=== PATIENT | male | born 1955 | race Caucasian/White ===

== ENCOUNTER 2017-01-05 15:50 | Inpatient (IN) | payer OTHER ==
[~2017-01-05] VITALS: Ht 180.3 cm; Wt 129.0 kg
[~2017-01-05 15:50] MED LIST: ACET-1256 PO; CALC500C3 PO; CIPR-255 PO; CPR500 PO; LCTX PO; MCRK20 PO
[2017-01-05] MEDS ORDERED: ONDANSETRON INJ 2 MG/ML 2 ML VIAL IV STA (16:11)
[2017-01-05] MEDS ORDERED: SODIUM CHLORIDE 0.9% 1000ML 1,000 ML IV STA ×2 (16:11→18:16)
--- NOTE | 2017-01-05 16:14 | EMERGENCY ROOM VISIT NOTE ---
History Report prepared by Eyad: Della Rendon Under the Supervision of: Dr. Sd Bateman D.O. First contact with patient: 16:06 Chief Complaint: ABDOMINAL PAIN Stated Complaint: ABDOMINAL PAIN Nursing Triage Summary: pt reports mid abd pain started wednesday. no nausea no vomiting . today noticed heart palpatations History of Present Illness The patient is a 61 year old male who presents to the Emergency Room with complaints of worsening abdominal pain beginning 2 days ago. The patient reports that the pain has been radiating, and that his pain level ranges from a 4 to an 8. He also states that he has been unable to notice a pattern with what exacerbates or alleviates his pain. The patient reports having diarrhea, but denies nausea and vomiting. He also denies black and bloody stool. He states that he had bariatric surgery about 12 years ago that went poorly. He also states that his abdominal wall herniated and trapped a section of his intestines. The patient reports that last year he had a cholecystectomy, which tore the intestinal wall. He reports having another hernia after this. He states that he is on lisinopril and aspirin. The patient states that he smokes less than a pack of cigarettes per day, and that he occasionally drinks. Source of History: patient Onset: 2 days ago Position: abdomen Timing: worsening Associated Symptoms: + diarrhea, No nausea, No vomiting Review of Systems See HPI for pertinent positives & negatives. A total of 10 systems reviewed and were otherwise negative. Past Medical & Surgical Medical Problems: (1) History of gastroesophageal reflux (GERD) Surgical Problems: (1) History of bariatric surgery (2) History of umbilical hernia repair Family History No pertinent family history stated. Social History Smoking Status: Current Every Day Smoker Alcohol Use: occasionally Marital Status: Housing Status: lives with significant other Occupation Status: employed Current/Historical Medications Scheduled Aspirin (Aspirin), 325 MG PO QAM Lisinopril & Hydrochlorothiazi (Zestoretic 20-12.5 mg), 1 TAB PO DAILY Allergies Coded Allergies: No Known Allergies (Verified , 01/05/17) Physical Exam Vital Signs Date Time Temp Pulse Resp B/P (MAP) Pulse Ox O2 Delivery O2 Flow Rate FiO2 01/05/17 20:26 89 01/05/17 19:53 99 18 148/90 97 Room Air 01/05/17 18:36 98 18 138/85 97 Room Air 01/05/17 16:17 95 01/05/17 15:56 36.8 88 18 166/98 96 Room Air Physical Exam GENERAL: Patient is awake, alert, and in no acute distress. Patient is resting comfortably and showing no signs of anxiety EYES: The conjunctivae are clear. The pupils are round and reactive. EARS, NOSE, MOUTH AND THROAT: The nose is without any evidence of any deformity. Mucous membranes are moist tongue is midline NECK: The neck is nontender and supple. RESPIRATORY: Normal respiratory effort is noted there is no evidence of wheezing rhonchi or rales CARDIOVASCULAR: Regular rate and rhythm noted there no murmurs rubs or gallops normal S1 normal S2 GASTROINTESTINAL: Moderately distended. Periumbilical tenderness to palpation with a ventral hernia noted. Due to patient's abdominal girth, it is difficult to tell if this is an incarcerated hernia. MUSCULOSKELETAL/EXTREMITIES: There is no evidence of gross deformity full range of motion is noted in the hips and shoulders SKIN: There is no obvious evidence of any rash. There are no petechiae, pallor or cyanosis noted. NEUROLOGIC: Patient is awake alert and oriented x3 Medical Decision & Procedures ER Provider Diagnostic Interpretation: Radiology results as stated below per my review and radiologist interpretation: CHEST ONE VIEW PORTABLE CLINICAL HISTORY: Pain, radiating to the abdomen. COMPARISON STUDY: 04/11/2015 FINDINGS: The heart is mildly enlarged. There is mild aortic tortuosity. There is no failure. There is no focal pulmonary consolidation. There is minor basilar atelectasis. No free intraperitoneal air is visualized.[ IMPRESSION: No active disease in the chest. Electronically signed by: Greg Garza M.D. 01/05/2017 4:31 PM Dictated Date/Time: 01/05/2017 4:[address] SCAN OF THE ABDOMEN AND PELVIS WITHOUT CONTRAST CLINICAL HISTORY: upper abd pain COMPARISON STUDY: 04/10/2015 TECHNIQUE: CT scan of the abdomen and pelvis was performed from the lung bases to the proximal femurs. Images are reviewed in the axial, sagittal, and coronal planes. IV contrast was not administered for this examination. A dose lowering technique was utilized adhering to the principles of ALARA. CT DOSE: 1353.86 mGycm FINDINGS: Lower chest: There are dependent bibasal atelectatic changes Liver: The unenhanced liver is normal in size, contour, and attenuation. There is no intrahepatic biliary ductal dilatation. Gallbladder: Surgically absent Spleen: Normal in size and attenuation. Pancreas: Unremarkable. Adrenal glands: Unremarkable. Kidneys: There are 2 lower pole left renal calculi the largest of which measures 6 mm. There is no hydronephrosis. There is minor bilateral perinephric stranding. No ureteral calculi are visualized. No bladder calculi are delineated. Bowel: There are postsurgical changes of a presumed gastric bypass. There is a ventral hernia containing several small bowel loops. There is dilatation of the afferent loop. There is mild dilatation of the afferent loop and a partial obstruction at the level the ventral hernia must be considered. There is no evidence of acute appendicitis. There is no evidence of acute diverticulitis. Peritoneum: There is no intraperitoneal free air or abdominal ascites. Vasculature: The abdominal aorta is normal in course and caliber. Adenopathy: Borderline enlarged retroperitoneal and iliac lymph nodes remain similar to the preceding study. Pelvic viscera: The bladder, and pelvic viscera are unremarkable. Skeletal structures: No destructive osseous lesions are seen. IMPRESSION: 1. Postsurgical changes of a cholecystectomy, and gastric bypass with Trish-en-Y anastomosis 2. Dilatation of the afferent and proximal efferent loops. 3. The findings are consistent with a small bowel obstruction, likely at the site of a bowel containing ventral hernia 4. Left-sided nephrolithiasis. No ureteral calculi identified Electronically signed by: Greg Garza M.D. 01/05/2017 6:05 PM Dictated Date/Time: 01/05/2017 5:55 PM Laboratory Results 01/05/17 16:15 Red Blood Count 6.03, Mean Corpuscular Volume 87.7, Mean Corpuscular Hemoglobin 30.8, Mean Corpuscular Hemoglobin Concent 35.2, Mean Platelet Volume 9.9, Neutrophils (%) (Auto) 81.5, Lymphocytes (%) (Auto) 11.6, Monocytes (%) (Auto) 4.3, Eosinophils (%) (Auto) 2.0, Basophils (%) (Auto) 0.3, Neutrophils # (Auto) 13.76, Lymphocytes # (Auto) 1.96, Monocytes # (Auto) 0.72, Eosinophils # (Auto) 0.33, Basophils # (Auto) 0.05 01/05/17 16:15 Test 01/05/17 16:15 01/05/17 16:22 01/05/17 19:52 White Blood Count 16.87 K/uL (4.8-10.8) Red Blood Count 6.03 M/uL (4.7-6.1) Hemoglobin 18.6 g/dL (14.0-18.0) Hematocrit 52.9 % (42-52) Mean Corpuscular Volume 87.7 fL (80-100) Mean Corpuscular Hemoglobin 30.8 pg (25-34) Mean Corpuscular Hemoglobin Concent 35.2 g/dl (32-36) Platelet Count 336 K/uL (130-400) Mean Platelet Volume 9.9 fL (7.4-10.4) Neutrophils (%) (Auto) 81.5 % Lymphocytes (%) (Auto) 11.6 % Monocytes (%) (Auto) 4.3 % Eosinophils (%) (Auto) 2.0 % Basophils (%) (Auto) 0.3 % Neutrophils # (Auto) 13.76 K/uL (1.4-6.5) Lymphocytes # (Auto) 1.96 K/uL (1.2-3.4) Monocytes # (Auto) 0.72 K/uL (0.11-0.59) Eosinophils # (Auto) 0.33 K/uL (0-0.5) Basophils # (Auto) 0.05 K/uL (0-0.2) RDW Standard Deviation 44.8 fL (36.4-46.3) RDW Coefficient of Variation 13.9 % (11.5-14.5) Immature Granulocyte % (Auto) 0.3 % Immature Granulocyte # (Auto) 0.05 K/uL (0.00-0.02) Prothrombin Time 10.9 SECONDS (9.0-12.0) Prothromb Time International Ratio 1.0 (0.9-1.1) Activated Partial Thromboplast Time 28.5 SECONDS (21.0-31.0) Partial Thromboplastin Ratio 1.1 Anion Gap 4.0 mmol/L (3-11) Est Creatinine Clear Calc Drug Dose 110.8 ml/min Estimated GFR () 97.9 Estimated GFR (Non- 84.5 BUN/Creatinine Ratio 10.4 (10-20) Calcium Level 9.0 mg/dl (8.5-10.1) Magnesium Level 2.3 mg/dl (1.8-2.4) Total Bilirubin 0.6 mg/dl (0.2-1) Direct Bilirubin 0.2 mg/dl (0-0.2) Aspartate Amino Transf (AST/SGOT) 24 U/L (15-37) Alanine Aminotransferase (ALT/SGPT) 30 U/L (12-78) Alkaline Phosphatase 89 U/L (45-117) Total Creatine Kinase 237 U/L (39-308) Creatine Kinase MB 2.8 ng/ml (0.5-3.6) Creatine Kinase MB Ratio 1.2 (0-3.0) Troponin I < 0.015 ng/ml (0-0.045) Total Protein 7.6 gm/dl (6.4-8.2) Albumin 3.7 gm/dl (3.4-5.0) Amylase Level 49 U/L (25-115) Lipase 108 U/L (73-393) Bedside Lactic Acid Venous 1.74 mmol/L (0.90-1.70) Urine Color YELLOW Urine Appearance CLEAR (CLEAR) Urine pH 7.0 (4.5-7.5) Urine Specific [place] 1.012 (1.000-1.030) Urine Protein NEG (NEG) Urine Glucose (UA) NEG (NEG) Urine Ketones NEG (NEG) Urine Occult Blood NEG (NEG) Urine Nitrite NEG (NEG) Urine Bilirubin NEG (NEG) Urine Urobilinogen NEG (NEG) Urine Leukocyte Esterase NEG (NEG) Laboratory results per my review. Medications Administered Medications (Trade) Dose Ordered Sig/Haylee Route Start Time Stop Time Status Last Admin Dose Admin Sodium Chloride 1,000 ml @ 999 mls/hr Q1H1M STAT IV 01/05/17 16:11 01/05/17 17:11 DC 01/05/17 16:11 999 MLS/HR Ondansetron HCl (Zofran Inj) 4 mg NOW STAT IV 01/05/17 16:11 01/05/17 16:14 DC 01/05/17 16:22 4 MG Sodium Chloride 1,000 ml @ 999 mls/hr Q1H1M STAT IV 01/05/17 18:16 01/05/17 19:16 DC 01/05/17 18:29 999 MLS/HR Piperacillin Sod/ Tazobactam Sod (Zosyn Iv) 4.5 gm NOW STAT IV 01/05/17 18:16 01/05/17 18:17 DC 01/05/17 18:29 4.5 GM ECG Indication: abdominal pain Rate (beats per minute): 96 Rhythm: sinus rhythm Findings: PAC, RBBB Change: no significant change (from April 10, 2015) ED Course 1608: The patient was evaluated in room A2. A complete history and physical examination were performed. 1611: Ordered Zofran Inj 4 mg IV, Sodium Chloride 1,000 ml @ 999 mls/hr IV. 1816: Ordered Zosyn Iv 4.5 gm IV, Sodium Chloride 1,000 ml @ 999 mls/hr IV. 1826: I discussed the patient's case with Dr. Manley. The patient will be evaluated for further management. 1830: Upon reevaluation, the patient is resting. I discussed results and treatment plan with him. He verbalizes agreement and understanding. I spoke with Dr. Manley of [facility]. The patient will be evaluated for further management and care. Medical Decision Differential diagnosis: Etiologies such as appendicitis, diverticulitis, PUD, biliary pathology, UTI, pancreatitis, obstruction, mesenteric ischemia, aortic pathology, infections, inflammatory bowel disease, renal colic, as well as others were entertained. Nursing notes reviewed. The patient is a 61-year-old male who presented to the emergency department for an evaluation of upper abdominal pain. The patient is had previous surgeries in the past and has a known ventral hernia. This area appears to be tender but due to his body habitus it is difficult to evaluate so a CAT scan of the abdomen and pelvis was obtained to further evaluate the cause of the patient's pain. He was found have a ventral hernia but also appeared to have signs of small bowel obstruction associated with this. I discussed the patient's laboratory radiographic studies with him. He was treated with IV fluids. He did not wish to have any pain medication at this time. Because the patient's finding on CAT scan I discussed his case with the on-call general surgeon. He is agreed to evaluate the patient in the emergency department for further management and disposition. Medication Reconcilliation Current Medication List: was personally reviewed by me Blood Pressure Screening Patient's blood pressure: Elevated blood pressure Blood pressure disposition: Elevated BP felt to be situational Consults Time Called: 1814 Consulting Physician: Dr. Manley- Surgery Returned Call: 1826 I discussed the patient's case with Dr. Manley. The patient will be evaluated for further management. Impression Primary Impression: Ventral hernia Additional Impression: Small bowel obstruction Scribe Attestation The scribe's documentation has been prepared under my direction and personally reviewed by me in its entirety. I confirm that the note above accurately reflects all work, treatment, procedures, and medical decision making performed by me. Departure Information Dispostion Being Evaluated By Hospitalist Referrals Etienne Brewer M.D. (PCP) Patient Instructions [facility] Problem Qualifiers Primary Impression: Ventral hernia Obstruction and gangrene presence: with obstruction but without gangrene Qualified Codes: K43.6 - Other and unspecified ventral hernia with obstruction , without gangrene
[2017-01-05] MEDS ORDERED: LISI-787 PO (16:19)
[2017-01-05 16:27] LABS: BASO % 0.3 %; BASO ABS # 0.05 K/uL (0-0.2); COMPLETE YES; HEMATOCRIT 52.9 % (42-52); IG% 0.3 %; LYMPH % 11.6 %; LYMPH ABS # 1.96 K/uL (1.2-3.4); MEAN CELL VOLUME 87.7 fL (80-100); MEAN CORPUSCULAR HEMOGLOBIN 30.8 pg (25-34); MEAN CORPUSCULAR HGB CONC 35.2 g/dl (32-36); MEAN PLATELET VOLUME 9.9 fL (7.4-10.4); MONO % 4.3 %; NEUT % 81.5 %; PLATELET COUNT 336 K/uL (130-400); RED BLOOD COUNT 6.03 M/uL (4.7-6.1); WHITE BLOOD COUNT 16.87 K/uL (4.8-10.8)
--- NOTE | 2017-01-05 16:32 | DIAGNOSTIC IMAGING REPORT ---
CHEST ONE VIEW PORTABLE CLINICAL HISTORY: Pain, radiating to the abdomen. COMPARISON STUDY: 04/11/2015 FINDINGS: The heart is mildly enlarged. There is mild aortic tortuosity. There is no failure. There is no focal pulmonary consolidation. There is minor basilar atelectasis. No free intraperitoneal air is visualized.[ IMPRESSION: No active disease in the chest. Electronically signed by: Greg Garza M.D. 01/05/2017 4:31 PM Dictated Date/Time: 01/05/2017 4:30 PM
[2017-01-05 16:34] LABS: PARTIAL THROMBOPLASTIN RATIO 1.1; PROTHROMBIN TIME (PATIENT) 10.9 SECONDS (9.0-12.0)
[2017-01-05 16:55] LABS: ALKALINE PHOSPHATASE 89 U/L (45-117); ALT/SGPT 30 U/L (12-78); AMYLASE 49 U/L (25-115); AST/SGOT 24 U/L (15-37); BLOOD UREA NITROGEN 10 mg/dl (7-18); BUN/CREATININE RATIO 10.4 (10-20); CARBON DIOXIDE 29 mmol/L (21-32); CHLORIDE 104 mmol/L (98-107); CKMB/CK RATIO 1.2 (0-3.0); CREATININE 0.97 mg/dl (0.60-1.40); GLUCOSE 110 mg/dl (70-99); SODIUM 138 mmol/L (136-145)
[2017-01-05] MEDS ORDERED: ASPEC325 PO (17:01)
--- NOTE | 2017-01-05 18:06 | DIAGNOSTIC IMAGING REPORT ---
CT SCAN OF THE ABDOMEN AND PELVIS WITHOUT CONTRAST CLINICAL HISTORY: upper abd pain COMPARISON STUDY: 04/10/2015 TECHNIQUE: CT scan of the abdomen and pelvis was performed from the lung bases to the proximal femurs. Images are reviewed in the axial, sagittal, and coronal planes. IV contrast was not administered for this examination. A dose lowering technique was utilized adhering to the principles of ALARA. CT DOSE: 1353.86 mGycm FINDINGS: Lower chest: There are dependent bibasal atelectatic changes Liver: The unenhanced liver is normal in size, contour, and attenuation. There is no intrahepatic biliary ductal dilatation. Gallbladder: Surgically absent Spleen: Normal in size and attenuation. Pancreas: Unremarkable. Adrenal glands: Unremarkable. Kidneys: There are 2 lower pole left renal calculi the largest of which measures 6 mm. There is no hydronephrosis. There is minor bilateral perinephric stranding. No ureteral calculi are visualized. No bladder calculi are delineated. Bowel: There are postsurgical changes of a presumed gastric bypass. There is a ventral hernia containing several small bowel loops. There is dilatation of the afferent loop. There is mild dilatation of the afferent loop and a partial obstruction at the level the ventral hernia must be considered. There is no evidence of acute appendicitis. There is no evidence of acute diverticulitis. Peritoneum: There is no intraperitoneal free air or abdominal ascites. Vasculature: The abdominal aorta is normal in course and caliber. Adenopathy: Borderline enlarged retroperitoneal and iliac lymph nodes remain similar to the preceding study. Pelvic viscera: The bladder, and pelvic viscera are unremarkable. Skeletal structures: No destructive osseous lesions are seen. IMPRESSION: 1. Postsurgical changes of a cholecystectomy, and gastric bypass with Trish-en-Y anastomosis 2. Dilatation of the afferent and proximal efferent loops. 3. The findings are consistent with a small bowel obstruction, likely at the site of a bowel containing ventral hernia 4. Left-sided nephrolithiasis. No ureteral calculi identified Electronically signed by: Greg Garza M.D. 01/05/2017 6:05 PM Dictated Date/Time: 01/05/2017 5:55 PM
[2017-01-05] MEDS ORDERED: PIPERACILLIN/TAZOBACTAM 4.5 GM/100ML D5W IV STA (18:16)
--- NOTE | 2017-01-05 19:51 | Surgery Consultation ---
Consultation Date of Consultation: Jan 05, 2017. Attending Physician: History of Present Illness The patient is a 61 year old male who presents to the Emergency Room with complaints of worsening abdominal pain beginning 2 days ago. The patient reports that the pain has been radiating, and that his pain level ranges from a 4 to an 8. He also states that he has been unable to notice a pattern with what exacerbates or alleviates his pain. The patient reports having diarrhea, but denies nausea and vomiting. He also denies black and bloody stool. He states that he had bariatric surgery about 12 years ago that went poorly. He also states that his abdominal wall herniated and trapped a section of his intestines. The patient reports that last year he had a cholecystectomy, which tore the intestinal wall. He reports having another hernia after this. He states that he is on lisinopril and aspirin. The patient states that he smokes less than a pack of cigarettes per day, and that he occasionally drinks. pt is still have some abdominal pain, pt has high WBC [id number]. 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 Social History Smoking Status: Current Every Day Smoker Smokeless Tobacco Use: Unknown Alcohol Use: occasionally Drug Use: none Marital Status: Housing Status: lives with significant other Occupation Status: employed Allergies Coded Allergies: No Known Allergies (Verified , 01/05/17) Home Medications Scheduled Aspirin (Aspirin), 325 MG PO QAM Lisinopril & Hydrochlorothiazi (Zestoretic 20-12.5 mg), 1 TAB PO DAILY Review of Systems Constitutional: No fever, No chills, No sweats, No weight loss, No weakness, No fatigue, No problem reported Eyes: No worsening of vision, No eye pain, No redness, No discharge, No diplopia, No problem reported ENT: No hearing loss, No unusual epistaxis, No nasal symptoms, No sore throat, No tinnitus, No dental problems, No trouble swallowing, No problem reported Respiratory: No cough, No sputum, No wheezing, No shortness of breath, No dyspnea on exertion, No dyspnea at rest, No hemoptysis, No problem reported Cardiovascular: No chest pain, No orthopnea, No PND, No edema, No claudication , No palpitations, No problem reported Abdomen: + pain, + constipation Musculoskeletal: No joint pain, No muscle pain, No swelling, No calf pain, No problem reported Neurologic: No memory loss, No paralysis, No weakness, No numbness/tingling, No vertigo, No balance problems, No problem reported Psychiatric: No depression symptoms, No anhedonism, No anxiety, No insomnia, No substance abuse, No problem reported Endocrine: No fatigue, No excessive thirst, No excessive urination, No problem reported Hematologic / Lymphatic: No abnormal bleeding/bruising, No clotting problems, No swollen lymph nodes, No night sweats, No problem reported Physical Exam Date Time Temp Pulse Resp B/P (MAP) Pulse Ox O2 Delivery O2 Flow Rate FiO2 01/05/17 18:36 98 18 138/85 97 Room Air 01/05/17 16:17 95 01/05/17 15:56 36.8 88 18 166/98 96 Room Air General Appearance: WD/WN, + mild distress Head: normocephalic Eyes: normal inspection ENT: normal ENT inspection Neck: supple, no JVD Respiratory/Chest: chest non-tender, lungs clear, normal breath sounds, no respiratory distress Cardiovascular: regular rate, rhythm, no edema, no gallop, no JVD, no murmur Abdomen/GI: + tenderness (at ventral hernia area, could not complect to reduci hernia, ventral hernia +), + abnormal bowel sounds, + distended Extremities/Musculoskelatal: normal inspection, no calf tenderness, normal capillary refill Neurologic/Psych: no motor/sensory deficits, alert, normal mood/affect Skin: normal color, warm/dry, no rash Laboratory Results Last 24 Hours Test 01/05/17 16:15 01/05/17 16:22 White Blood Count 16.87 K/uL Red Blood Count 6.03 M/uL Hemoglobin 18.6 g/dL Hematocrit 52.9 % Mean Corpuscular Volume 87.7 fL Mean Corpuscular Hemoglobin 30.8 pg Mean Corpuscular Hemoglobin Concent 35.2 g/dl Platelet Count 336 K/uL Mean Platelet Volume 9.9 fL Neutrophils (%) (Auto) 81.5 % Lymphocytes (%) (Auto) 11.6 % Monocytes (%) (Auto) 4.3 % Eosinophils (%) (Auto) 2.0 % Basophils (%) (Auto) 0.3 % Neutrophils # (Auto) 13.76 K/uL Lymphocytes # (Auto) 1.96 K/uL Monocytes # (Auto) 0.72 K/uL Eosinophils # (Auto) 0.33 K/uL Basophils # (Auto) 0.05 K/uL RDW Standard Deviation 44.8 fL RDW Coefficient of Variation 13.9 % Immature Granulocyte % (Auto) 0.3 % Immature Granulocyte # (Auto) 0.05 K/uL Prothrombin Time 10.9 SECONDS Prothromb Time International Ratio 1.0 Activated Partial Thromboplast Time 28.5 SECONDS Partial Thromboplastin Ratio 1.1 Sodium Level 138 mmol/L Potassium Level 4.0 mmol/L Chloride Level 104 mmol/L Carbon Dioxide Level 29 mmol/L Anion Gap 4.0 mmol/L Blood Urea Nitrogen 10 mg/dl Creatinine 0.97 mg/dl Est Creatinine Clear Calc Drug Dose 110.8 ml/min Estimated GFR () 97.9 Estimated GFR (Non- 84.5 BUN/Creatinine Ratio 10.4 Random Glucose 110 mg/dl Calcium Level 9.0 mg/dl Magnesium Level 2.3 mg/dl Total Bilirubin 0.6 mg/dl Direct Bilirubin 0.2 mg/dl Aspartate Amino Transf (AST/SGOT) 24 U/L Alanine Aminotransferase (ALT/SGPT) 30 U/L Alkaline Phosphatase 89 U/L Total Creatine Kinase 237 U/L Creatine Kinase MB 2.8 ng/ml Creatine Kinase MB Ratio 1.2 Troponin I < 0.015 ng/ml Total Protein 7.6 gm/dl Albumin 3.7 gm/dl Amylase Level 49 U/L Lipase 108 U/L Bedside Lactic Acid Venous 1.74 mmol/L Assessment & Plan CT scan-IMPRESSION: 1. Postsurgical changes of a cholecystectomy, and gastric bypass with Trish-en-Y anastomosis 2. Dilatation of the afferent and proximal efferent loops. 3. The findings are consistent with a small bowel obstruction, likely at the site of a bowel containing ventral hernia 4. Left-sided nephrolithiasis. No ureteral calculi identified Assement: pt is a 61 year old male who presents to ER for 2 days history abdominal pain, CT Dx SBO cause by ventral hernia, IMP: possible incarcerated ventral hernia, Plan: I recommend to do emergency exploratory laparotomy, ventral hernia repair possible with mesh, possible bowel resection, D/W benefits, risks and alternatives of the procedure, the risks- infection, bleeding, injury bowel, hernia recurrence, CA, DVT, stroke, and , pt understood, he agrees with [facility] plan, I answered all questions, I reviewed all labs,
[2017-01-05 20:13] LABS: URINE APPEARANCE CLEAR (CLEAR); URINE BILIRUBIN NEG (NEG); URINE COLOR YELLOW; URINE NITRITE NEG (NEG); URINE SPECIFIC GRAVITY 1.012 (1.000-1.030); UROBILINOGEN NEG (NEG)
[2017-01-05 20:14] LABS: MANUAL MICROSCOPIC REQUIRED? NO; REVIEW REQ? NO
[2017-01-05] MEDS ORDERED: BACITRACIN OINT 15 GM TUBE ONE (20:38)
[2017-01-05] MEDS ORDERED: BUPIVACAINE 0.5 % 5 MG/1 ML MPF 30ML VIAL ONE (20:38)
[2017-01-05] MEDS ORDERED: LIDOCAINE HCL 1% 20 ML VIAL ONE (20:38)
[2017-01-05] MEDS ORDERED: CEFAZOLIN IV 2,000 MG/60 ML D5W IV ONE (20:45)
[2017-01-05] MEDS ORDERED: FENTANYL CITRATE INJ 50 MCG/1 ML 2 ML VIAL ONE ×2 (21:04→23:10)
[2017-01-05] MEDS ORDERED: SUCCINYLCHOLINE CHLORIDE 20 MG/ML 10 ML VIAL IV ONE (21:05)
[2017-01-05] MEDS ORDERED: DEXAMETHASONE SOD INJ 4 MG/ML VIAL ONE (21:07)
[2017-01-05] MEDS ORDERED: PROPOFOL IV EMULSION 10 MG/ML 20 ML VIAL IV ONE (21:07)
[2017-01-05] MEDS ORDERED: ONDANSETRON INJ 2 MG/ML 2 ML VIAL ONE ×2 (21:07→21:08)
[2017-01-05] MEDS ORDERED: LIDOCAINE HCL 2% 2 ML VIAL (20MG/ML) ONE (21:07)
--- NOTE | 2017-01-05 21:12 | History & Physical Bridge Note ---
H&P Re-Evaluation Bridge Note: I have examined the patient, reviewed the History & Physical and in the interval since the performance of the History & Physical I have noted the following changes of clinical significance: No changes noted
[2017-01-05] MEDS ORDERED: MoRPHine SULFATE 10 MG/ML CARP/VIAL IV PRN (21:15)
[2017-01-05] MEDS ORDERED: HYDROmorphone INJ 1 MG/ML SYR IV PRN ×2 (21:15→23:45)
[2017-01-05] MEDS ORDERED: PHENYLEPHRINE 100MCG/ML 5ML SYR IV PRN (21:15)
[2017-01-05] MEDS ORDERED: ONDANSETRON INJ 2 MG/ML 2 ML VIAL IV PRN ×2 (21:15→23:45)
[2017-01-05] MEDS ORDERED: EpHEDrine SULFATE INJ 50 MG/ML AMP IV PRN (21:15)
[2017-01-05] MEDS ORDERED: LABETALOL HCL IV 5 MG/ML 20ML IV PRN (21:15)
[2017-01-05] MEDS ORDERED: FLUMAZENIL 0.1 MG/1 ML 10 ML VIAL IV PRN (21:15)
[2017-01-05] MEDS ORDERED: ATROPINE SULFATE 0.1 MG/ML 5ML SYR IV PRN (21:15)
[2017-01-05] MEDS ORDERED: MEPERIDINE HCL 25 MG/ML CARP IV PRN (21:15)
[2017-01-05] MEDS ORDERED: NALOXONE HCL 0.4 MG/1 ML VIAL/CARP IV PRN (21:15)
[2017-01-05] MEDS ORDERED: ROCURONIUM BROMID 50MG/5ML SYR ONE (21:48)
[2017-01-05] MEDS ORDERED: PHENYLEPHRINE 100MCG/ML 5ML SYR ONE (22:18)
[2017-01-05] MEDS ORDERED: NEOSTIGMINE METHYLSULFATE 5 MG/5 ML SYR ONE (23:10)
[2017-01-05] MEDS ORDERED: GLYCOPYRROLATE INJ 0.2 MG/ML VIAL ONE (23:10)
--- NOTE | 2017-01-05 23:35 | [facility] Post Operative Brief Note ---
Immediate Operative Summary Operative Date Jan 05, 2017. Pre-Operative Diagnosis Incarcerated Ventral Hernia Post-Operative Diagnosis Incarcerated Ventral Hernia Procedure(s) Performed Exploratory Laparotomy, Repair of ventral hernia, lysis of adhesions Surgeon Dr. Mcnamara Pelt Grader Surgeon(s) none Estimated Blood Loss 20mL Findings incarcerated ventral hernia, adhesion,2 ventral hernia, size [id number] each Fluids (cc crystalloids) 1800ml Specimens Permanent Specimen A. Hernia Sac Drains none Anesthesia general Complication(s) None Disposition Recovery Room / PACU
[2017-01-05] MEDS ORDERED: ACETAMINOPHEN 325 MG TAB PO PRN (23:45)
[2017-01-06] VITALS (11 sets, daily range): BP systolic 110–134; BP diastolic 73–84; PULSE 66–86; TEMP 36.7–37.4; O2SAT 92–98; Ht 180.3 cm; Wt 129.0 kg
--- NOTE | 2017-01-06 00:07 | Anesthesiology Progress Note ---
Anesthesia Post Op Note Date & Time Jan 06, 2017 at 00:07 Vital Signs Pain Intensity: 2 Vital Signs Past 12 Hours Date Time Temp Pulse Resp B/P (MAP) Pulse Ox O2 Delivery O2 Flow Rate FiO2 01/06/17 00:01 86 15 136/80 93 Room Air 01/05/17 23:55 85 18 130/82 97 Room Air 01/05/17 23:50 86 18 133/85 96 Oxymask 5 96 01/05/17 23:45 36.8 88 16 134/88 96 Oxymask 01/05/17 20:26 89 01/05/17 19:53 99 18 148/90 97 Room Air 01/05/17 18:36 98 18 138/85 97 Room Air 01/05/17 16:17 95 01/05/17 15:56 36.8 88 18 166/98 96 Room Air Notes Mental Status: alert / awake / arousable, participated in evaluation Pt Amnestic to Procedure: Yes Nausea / Vomiting: adequately controlled Pain: adequately controlled Airway Patency, RR, SpO2: stable & adequate BP & HR: stable & adequate Hydration State: stable & adequate Anesthetic Complications: no major complications apparent
[2017-01-06] MEDS: OXYCODONE/ACETAMINOPHEN 5-325 TAB PO PRN ×5 (01:02→18:43)
[2017-01-06 01:45] LABS: BUN/CREATININE RATIO 10.1 (10-20); CALCIUM 8.1 mg/dl (8.5-10.1); POTASSIUM 4.1 mmol/L (3.5-5.1)
[2017-01-06 01:55] LABS: ALB/GLOB RATIO 0.9 (0.9-2)
[2017-01-06] MEDS ORDERED: D5W AND 1/2NSS + 20MEQ KCL 1,000 ML IV SCH (02:00)
[2017-01-06] MEDS ORDERED: PIPERACILL/TAZOBAC CONSULT ACTIVE PRN (02:00)
[2017-01-06] MEDS: PIPERACILL/TAZOBAC IV 4.5 GM in DEXTROSE 5% 100ML 100 ML IV SCH ×3 (02:25→19:56)
--- NOTE | 2017-01-06 07:34 | OPERATIVE REPORT ---
DATE OF OPERATION: 01/05/2017 PREOPERATIVE DIAGNOSIS: Incarcerated ventral hernia. POSTOPERATIVE DIAGNOSIS: Same. PROCEDURE: Exploratory laparotomy, primary repair of ventral hernia x2. SURGEON: Marvel Mcnamara MD ANESTHESIA: General. ESTIMATED BLOOD LOSS: About 20 mL. IV FLUIDS: 800 mL. FINDINGS: Two incarcerated ventral hernias size about 2 x 2 cm each of the herniated neck. COMPLICATIONS: None. INDICATIONS FOR THE PROCEDURE: This is a 61-year-old gentleman who presented to the ED with 2 days history of abdominal pain. The patient had a ventral hernia in the past. The patient had a CT scan showing incarcerated ventral hernia with small bowel obstruction caused by a ventral hernia. The patient required exploratory laparotomy, repair of ventral hernia, possible mesh and possible bowel resection. I did talk to the patient about the benefit and risk, alternate procedure. I indicated the risks may include but not limited such as bleeding, infection, hernia recurrence, injury to bowel, myocardial infarction, DVT, stroke, and even . The patient understands. He signed informed consent. He agreed to proceed with the procedure. I answered all questions. DETAILS OF PROCEDURE: We brought the patient to the OR, and put the patient in the supine position. The patient received SCD on bilateral legs to prevent DVT. The patient also received 2 grams Ancef IV for prophylactic antibiotic. The patient received general anesthesia without difficulty. The patient received Ridley catheter insertion after anesthesiology. The patient's abdomen was prepped and draped in routine sterile fashion. After time out, I made a midline incision just above the umbilicus. I opened the skin and subcutaneous layer and fascial layer area and opened peritoneum and then we found the patient has 2 ventral hernias size about 2 x 2 cm each of the hernia neck and is an incarcerated ventral hernia. We did enlarged the hernia neck and reduce all small bowel back to the abdominal cavity. The bowel was pink. No ischemia sign. Once we made a midline incision and found the patient had 2 small hernia size about 2 x 2 cm each of the hernia neck, so I decided use the #1 Ethibond to primary closed the hernia fascia to fascia interrupted and we closed the first hernia and we moved towards another ventral hernia on the right side. Hernia neck size about 2 x 2 cm. Again, I used #1 Ethibond interrupted and closed the hernia fascial layer, tied all the suture and rechecked the hernia closed nicely. The reason I chose to primary close the hernia because the patient had a high white count of 16,000. I tried to avoid any infection if I put mesh in, so this 2 ventral hernia repair without the mesh primary closer. Hemostasis obtained. I closed the abdominal fascial layer by using #1 PDS continuous running, closed subcutaneous layer by using 2-0 Vicryl, closed skin by using staple. We put the dressing on. The patient tolerated the procedure well. After the procedure, the patient transported to recovery room in stable condition. All the instrument, needle and sponge count correct x2 at the end of the case. Also, during the procedure, we removed the piece of the hernia sac sent to pathology. I attest to the content of the Intraoperative Record and any orders documented therein. Any exceptions are noted below. MARINO
[2017-01-06 08:47] LABS: BASO % 0.1 %; BASO ABS # 0.02 K/uL (0-0.2); COMPLETE YES; HEMATOCRIT 45.9 % (42-52); IG% 0.2 %; LYMPH % 6.3 %; LYMPH ABS # 0.98 K/uL (1.2-3.4); MEAN CELL VOLUME 88.4 fL (80-100); MEAN CORPUSCULAR HEMOGLOBIN 30.3 pg (25-34); MEAN CORPUSCULAR HGB CONC 34.2 g/dl (32-36); MONO % 4.5 %; NEUT % 88.9 %; PLATELET COUNT 286 K/uL (130-400); RED BLOOD COUNT 5.19 M/uL (4.7-6.1); WHITE BLOOD COUNT 15.46 K/uL (4.8-10.8)
--- NOTE | 2017-01-06 14:20 | Surgery Progress Note ---
Surgery Progress Note Date of Service Jan 06, 2017. Subjective Post OP Day: 1 + feeling well, + pain controlled, No complaints, No nausea, No vomiting Objective Vital Signs: Date Time Temp Pulse Resp B/P (MAP) Pulse Ox O2 Delivery O2 Flow Rate FiO2 01/06/17 11:06 37.1 73 18 118/75 (89) 94 Room Air 01/06/17 07:39 37.0 72 18 110/73 (85) 94 Room Air 01/06/17 07:00 Room Air 01/06/17 03:35 37.1 79 16 113/73 (86) 94 Room Air 01/06/17 02:35 36.7 86 18 127/78 (94) 94 Room Air 01/06/17 02:00 Room Air 01/06/17 01:35 36.7 67 16 134/84 (101) 98 Room Air 01/06/17 01:16 37.1 76 16 126/83 95 Room Air 01/06/17 01:05 37.1 76 16 126/83 (97) 94 Room Air 01/06/17 00:35 95 Room Air 01/06/17 00:35 36.7 73 18 130/79 (96) 94 Room Air 01/06/17 00:20 81 18 125/81 95 Room Air 01/06/17 00:15 36.7 75 18 124/78 96 Room Air 01/06/17 00:01 86 15 136/80 93 Room Air 01/05/17 23:55 85 18 130/82 97 Room Air 01/05/17 23:50 86 18 133/85 96 Oxymask 5 96 01/05/17 23:45 36.8 88 16 134/88 96 Oxymask 01/05/17 20:26 89 01/05/17 19:53 99 18 148/90 97 Room Air 01/05/17 18:36 98 18 138/85 97 Room Air 01/05/17 16:17 95 01/05/17 15:56 36.8 88 18 166/98 96 Room Air General Appearance: WD/WN, no apparent distress Head: normocephalic, atraumatic Neck: trachea midline Respiratory/Chest: no respiratory distress, no accessory muscle use Abdomen: non distended, soft, + tenderness (appropriate post op) Incision(s): clean, dry (dressing clean and dry, did not remove or inspect incision on POD # 1) Laboratory Results: Results Past 24 Hours Test 01/05/17 16:15 01/05/17 16:22 01/05/17 19:52 01/06/17 01:07 Range/Units White Blood Count 16.87 4.8-10.8 K/uL Red Blood Count 6.03 4.7-6.1 M/uL Hemoglobin 18.6 14.0-18.0 g/dL Hematocrit 52.9 42-52 % Mean Corpuscular Volume 87.7 80-100 fL Mean Corpuscular Hemoglobin 30.8 25-34 pg Mean Corpuscular Hemoglobin Concent 35.2 32-36 g/dl Platelet Count 336 130-400 K/uL Mean Platelet Volume 9.9 7.4-10.4 fL Neutrophils (%) (Auto) 81.5 % Lymphocytes (%) (Auto) 11.6 % Monocytes (%) (Auto) 4.3 % Eosinophils (%) (Auto) 2.0 % Basophils (%) (Auto) 0.3 % Neutrophils # (Auto) 13.76 1.4-6.5 K/uL Lymphocytes # (Auto) 1.96 1.2-3.4 K/uL Monocytes # (Auto) 0.72 0.11-0.59 K/uL Eosinophils # (Auto) 0.33 0-0.5 K/uL Basophils # (Auto) 0.05 0-0.2 K/uL RDW Standard Deviation 44.8 36.4-46.3 fL RDW Coefficient of Variation 13.9 11.5-14.5 % Immature Granulocyte % (Auto) 0.3 % Immature Granulocyte # (Auto) 0.05 0.00-0.02 K/uL Prothrombin Time 10.9 9.0-12.0 SECONDS Prothromb Time International Ratio 1.0 0.9-1.1 Activated Partial Thromboplast Time 28.5 21.0-31.0 SECONDS Partial Thromboplastin Ratio 1.1 Sodium Level 138 140 136-145 mmol/L Potassium Level 4.0 4.1 3.5-5.1 mmol/L Chloride Level 104 107 98-107 mmol/L Carbon Dioxide Level 29 28 21-32 mmol/L Anion Gap 4.0 5.0 3-11 mmol/L Blood Urea Nitrogen 10 10 7-18 mg/dl Creatinine 0.97 1.00 0.60-1.40 mg/dl Est Creatinine Clear Calc Drug Dose 110.8 107.5 ml/min Estimated GFR () 97.9 94.4 Estimated GFR (Non- 84.5 81.4 BUN/Creatinine Ratio 10.4 10.1 10-20 Random Glucose 110 136 70-99 mg/dl Calcium Level 9.0 8.1 8.5-10.1 mg/dl Magnesium Level 2.3 1.8-2.4 mg/dl Total Bilirubin 0.6 1.6 0.2-1 mg/dl Direct Bilirubin 0.2 0-0.2 mg/dl Aspartate Amino Transf (AST/SGOT) 24 300 15-37 U/L Alanine Aminotransferase (ALT/SGPT) 30 175 12-78 U/L Alkaline Phosphatase 89 120 45-117 U/L Total Creatine Kinase 237 39-308 U/L Creatine Kinase MB 2.8 0.5-3.6 ng/ml Creatine Kinase MB Ratio 1.2 0-3.0 Troponin I < 0.015 0-0.045 ng/ml Total Protein 7.6 6.3 6.4-8.2 gm/dl Albumin 3.7 3.0 3.4-5.0 gm/dl Amylase Level 49 25-115 U/L Lipase 108 73-393 U/L Bedside Lactic Acid Venous 1.74 0.90-1.70 mmol/L Urine Color YELLOW Urine Appearance CLEAR CLEAR Urine pH 7.0 4.5-7.5 Urine Specific [place] 1.012 1.000-1.030 Urine Protein NEG NEG Urine Glucose (UA) NEG NEG Urine Ketones NEG NEG Urine Occult Blood NEG NEG Urine Nitrite NEG NEG Urine Bilirubin NEG NEG Urine Urobilinogen NEG NEG Urine Leukocyte Esterase NEG NEG Globulin 3.3 2.5-4.0 gm/dl Albumin/Globulin Ratio 0.9 0.9-2 Test 01/06/17 07:41 Range/Units White Blood Count 15.46 4.8-10.8 K/uL Red Blood Count 5.19 4.7-6.1 M/uL Hemoglobin 15.7 14.0-18.0 g/dL Hematocrit 45.9 42-52 % Mean Corpuscular Volume 88.4 80-100 fL Mean Corpuscular Hemoglobin 30.3 25-34 pg Mean Corpuscular Hemoglobin Concent 34.2 32-36 g/dl Platelet Count 286 130-400 K/uL Mean Platelet Volume 10.0 7.4-10.4 fL Neutrophils (%) (Auto) 88.9 % Lymphocytes (%) (Auto) 6.3 % Monocytes (%) (Auto) 4.5 % Eosinophils (%) (Auto) 0.0 % Basophils (%) (Auto) 0.1 % Neutrophils # (Auto) 13.74 1.4-6.5 K/uL Lymphocytes # (Auto) 0.98 1.2-3.4 K/uL Monocytes # (Auto) 0.69 0.11-0.59 K/uL Eosinophils # (Auto) 0.00 0-0.5 K/uL Basophils # (Auto) 0.02 0-0.2 K/uL RDW Standard Deviation 45.6 36.4-46.3 fL RDW Coefficient of Variation 14.0 11.5-14.5 % Immature Granulocyte % (Auto) 0.2 % Immature Granulocyte # (Auto) 0.03 0.00-0.02 K/uL Assessment & Plan POD # 1 s/p repair of incarcerated ventral hernia x 2 - vitals stable - Leukocytosis of 15.46 improving - pain controlled and appropriate Plan: Continue IV pain medication and PO Percocet as needed for pain Continue IV fluids Will advance diet to full liquids Continue Abd binder Encourage ambulation and OOB to chair Will change dressing tomorrow repeat am labs Dr. Mcnamara has seen and examined patient, agrees with above
[2017-01-06] MEDS ORDERED: NURSING VERBAL MED ORDER ONE ×2 (15:00→20:15)
[2017-01-06] MEDS ORDERED: ZOLPIDEM TARTRATE 5 MG TAB PO PRN (20:30)
[2017-01-07] MEDS: OXYCODONE/ACETAMINOPHEN 5-325 TAB PO PRN ×3 (00:32→08:54)
[2017-01-07] MEDS: PIPERACILL/TAZOBAC IV 4.5 GM in DEXTROSE 5% 100ML 100 ML IV SCH (02:17)
[2017-01-07 07:34] VITALS: BP 133/79; PULSE 79; TEMP 37.2; O2SAT 94
[2017-01-07 07:34] LABS: HEMATOCRIT 43.2 % (42-52); MEAN CORPUSCULAR HEMOGLOBIN 29.7 pg (25-34); MEAN CORPUSCULAR HGB CONC 33.8 g/dl (32-36); PLATELET COUNT 268 K/uL (130-400); RED BLOOD COUNT 4.91 M/uL (4.7-6.1)
[2017-01-07 07:49] LABS: BUN/CREATININE RATIO 10.8 (10-20); CALCIUM 8.4 mg/dl (8.5-10.1); POTASSIUM 3.6 mmol/L (3.5-5.1)
[2017-01-07 07:57] LABS: ALB/GLOB RATIO 0.9 (0.9-2)
[2017-01-07] MEDS ORDERED: OXYC-57 PO (09:20)
[2017-01-07] MEDS ORDERED: DOCU-94 PO (09:25)
--- NOTE | 2017-01-07 09:25 | Discharge Instructions ---
Discharge Instructions Date of Service Jan 07, 2017. Admission Reason for Admission: Incarcerated Ventral Hernia Discharge Discharge Diagnosis / Problem: same Discharge Goals Goal(s): Decrease discomfort, Improve function Activity Recommendations Activity Limitations: as noted below No heavy lifting over 10 pounds for 4-6 weeks No strenuous activity until cleared by surgeon No submerging incision underwater for 2 weeks (no bathing, swimming, or hot tubs ) No driving while taking narcotic pain medication or until you are pain free . Instructions / Follow-Up Instructions / Follow-Up You may shower in 2 days (4 days from surgery). Remove dressing prior and then replace dressing to keep incision covered. Surgical noemi will be removed in the office at follow-up Continue to wear abdominal binder for support, you may take it off at bedtime if it is uncomfortable Walking and light activity is encouraged to prevent formation of blood clots Follow-up with Dr. Mcnamara in 1 week, please call office at [phone] to make an appointment Current Hospital Diet Patient's current hospital diet: Regular Diet Discharge Diet Recommended Diet: Regular Diet Procedures Procedures Performed: Exploratory Laparotomy, Repair of ventral hernia, lysis of adhesions Pending Studies Studies pending at discharge: no Medical Emergencies . Who to Call and When: Medical Emergencies: If at any time you feel your situation is an emergency, please call 911 immediately. . Non-Emergent Contact Non-Emergency issues call your: Primary Care Provider, Surgeon Call Non-Emergent contact if: you have a fever, temperature is above 101.5, your pain is not controlled, your pain is worsening, your pain is unusual for you, wound has increased drainage, wound has increased redness, wound has increased pain . "Provider Documentation" section prepared by Yesenia Guardado. . VTE Core Measure Inpt VTE Proph given/why not?: SCD's [place] Drug Monitoring Program Search Results: patient reviewed within database, no issues identified
--- NOTE | 2017-01-07 09:29 | Surgery Progress Note ---
Surgery Progress Note Date of Service Jan 07, 2017. Subjective Post OP Day: 2 (s/p repair of incarcerated ventral hernia x 2) + feeling well, + flatus, + pain controlled, + diet (tolerated full liquids and now regular diet), No complaints, No bowel movement, No nausea, No vomiting Objective Vital Signs: Date Time Temp Pulse Resp B/P (MAP) Pulse Ox O2 Delivery O2 Flow Rate FiO2 01/07/17 07:34 37.2 79 18 133/79 (97) 94 Room Air 01/07/17 00:29 Room Air 01/06/17 22:55 37.0 70 18 117/73 (88) 96 Room Air 01/06/17 20:46 37.1 66 17 130/74 (92) 94 Room Air 01/06/17 15:45 Room Air 01/06/17 15:05 37.4 83 18 132/84 (100) 92 Room Air 01/06/17 11:06 37.1 73 18 118/75 (89) 94 Room Air General Appearance: WD/WN, no apparent distress Head: normocephalic, atraumatic Neck: trachea midline Respiratory/Chest: no respiratory distress, no accessory muscle use Abdomen: non distended, soft, + tenderness (appropriate post op) Incision(s): clean, dry (dressing clean and dry , incision not inspected) Laboratory Results: Results Past 24 Hours Test 01/07/17 06:28 Range/Units White Blood Count 12.80 4.8-10.8 K/uL Red Blood Count 4.91 4.7-6.1 M/uL Hemoglobin 14.6 14.0-18.0 g/dL Hematocrit 43.2 42-52 % Mean Corpuscular Volume 88.0 80-100 fL Mean Corpuscular Hemoglobin 29.7 25-34 pg Mean Corpuscular Hemoglobin Concent 33.8 32-36 g/dl RDW Standard Deviation 45.6 36.4-46.3 fL RDW Coefficient of Variation 14.2 11.5-14.5 % Platelet Count 268 130-400 K/uL Mean Platelet Volume 10.0 7.4-10.4 fL Sodium Level 140 136-145 mmol/L Potassium Level 3.6 3.5-5.1 mmol/L Chloride Level 106 98-107 mmol/L Carbon Dioxide Level 29 21-32 mmol/L Anion Gap 5.0 3-11 mmol/L Blood Urea Nitrogen 11 7-18 mg/dl Creatinine 1.00 0.60-1.40 mg/dl Est Creatinine Clear Calc Drug Dose 107.5 ml/min Estimated GFR () 94.4 Estimated GFR (Non- 81.4 BUN/Creatinine Ratio 10.8 10-20 Random Glucose 92 70-99 mg/dl Calcium Level 8.4 8.5-10.1 mg/dl Total Bilirubin 0.5 0.2-1 mg/dl Aspartate Amino Transf (AST/SGOT) 60 15-37 U/L Alanine Aminotransferase (ALT/SGPT) 126 12-78 U/L Alkaline Phosphatase 102 45-117 U/L Total Protein 6.2 6.4-8.2 gm/dl Albumin 2.9 3.4-5.0 gm/dl Globulin 3.3 2.5-4.0 gm/dl Albumin/Globulin Ratio 0.9 0.9-2 Assessment & Plan POD # 2 s/p repair of incarcerated ventral hernia x 2 - vitals stable - Leukocytosis of 12.80 improving, afebrile - pain controlled and appropriate - passing flatus - tolerating regular diet Plan: d/c home today Discharge instructions reviewed with patient Rx for Percocet prn pain and Colace BID Follow-up in 1 week D/C IV antibiotics Dr. Mcnamara has seen and examined patient, agrees with above
[2017-01-07 10:52] VITALS: BP 133/79; PULSE 79; TEMP 37.2; O2SAT 94
[2017-01-07 11:00] VITALS: BP 145/72; PULSE 74; TEMP 36.7; O2SAT 95
--- NOTE | 2017-01-08 12:24 | Discharge Summary ---
Discharge Summary Dates Admission Date / Time: Jan 05, 2017 at 23:40 Discharge Date: Jan 07, 2017 Dispostion / Condition Discharge Disposition: Home Condition at Discharge: Good Principal Diagnosis (1) Incarcerated ventral hernia Problem List (1) Upper GI bleeding (2) History of gastroesophageal reflux (GERD) (3) History of bariatric surgery (4) History of umbilical hernia repair Consultations / Procedures Consultations: None Procedures: Exploratory laparotomy, repair of incarcerated ventral hernia x 2 Pending Studies / Follow-Up None Medication Reconciliation New Medications: Docusate Sodium (Colace) 100 Mg Cap 1 CAP PO BID for 15 Days, #30 CAP Oxycodone/Acetaminophen 5MG/325MG (Percocet 5MG/325MG) Tab 1-2 TABLETS PO Q4H PRN for Pain, #30 TAB Continued Medications: Aspirin (Aspirin) 325 Mg Ectab 325 MG PO QAM Lisinopril & Hydrochlorothiazi (Zestoretic 20-12.5 mg) 1 Tab Tab 1 TAB PO DAILY Admission HPI Per the Admitting provider: The patient is a 61 year old male who presents to the Emergency Room with complaints of worsening abdominal pain beginning 2 days ago. The patient reports that the pain has been radiating, and that his pain level ranges from a 4 to an 8. He also states that he has been unable to notice a pattern with what exacerbates or alleviates his pain. The patient reports having diarrhea, but denies nausea and vomiting. He also denies black and bloody stool. He states that he had bariatric surgery about 12 years ago that went poorly. He also states that his abdominal wall herniated and trapped a section of his intestines. The patient reports that last year he had a cholecystectomy, which tore the intestinal wall. He reports having another hernia after this. He states that he is on lisinopril and aspirin. The patient states that he smokes less than a pack of cigarettes per day, and that he occasionally drinks. pt is still have some abdominal pain, pt has high WBC 03136. 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 Hospital Course (1) Incarcerated ventral hernia Patient was taken to operating room for exploratory laparotomy and repair of incarcerated ventral hernia. Patient was found to have two separate small ventral hernias with incarceration measuring about 2 cm. Mesh was not used in the procedure given elevation in wbc. Patient tolerated procedure well without any complications. Was transferred to recovery in stable condition and then to medical/surgical floor for post operative care. He was started on IV fluids, IV antibiotics (Zosyn), IV Zofran prn nausea, IV pain medication with oral Percocet as needed for pain, NPO, activity as tolerated, SCDs. POD # 1 patient was doing well, vitals stable, pain moderate but controlled, hungry. No nausea or vomiting. Diet was advanced to full liquids. POD # 2 he tolerated full liquids throughout the day on POD # 1, pain controlled, urinating and ambulating without difficulty. Passing some gas but no bowel movement. Diet was advanced to regular diet and patient was discharge home in stable condition once tolerated diet. Discharge Instructions as given to patient Copies To Primary Care Provider: Etienne Brewer M.D..
== END 2017-01-07 12:37 | disposition home or self-care (01) | DRG 355 ==
LOC: C.EDB 15:51 → C.MSN 23:40 → ENRESERV 01-06 00:08
PROVIDERS: ADMIT Surgery; ATTEND Surgery
PROC: 0WQF0ZZ Repair Abdominal Wall, Open Approach (ICD-10-PCS; principal; 2017-01-05 21:00)
DX: K43.6 Other and unspecified ventral hernia with obstruction, without gangrene (principal); K21.9 Gastro-esophageal reflux disease without esophagitis; F17.200 Nicotine dependence, unspecified, uncomplicated; Z79.82 Long term (current) use of aspirin; Z79.899 Other long term (current) drug therapy